=== PATIENT | male | born 1970 | race Caucasian/White ===

== ENCOUNTER 2018-07-13 08:54 | Inpatient (IN) | payer OTHER ==
[2018-07-13 10:12] VITALS: BMI 21.1
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
[2018-07-13] MEDS ORDERED: MAGNESIUM CITRATE 300 ML BOTTLE PO PRN (11:54)
[2018-07-13] MEDS ORDERED: MELATONIN 5 MG TABLETS PO PRN (11:54)
[2018-07-13] MEDS ORDERED: hydrOXYzine PAMOATE 25 MG CAPSULE (FP) PO PRN (11:54)
[2018-07-13] MEDS ORDERED: MENTHOL/PHENOL 1 EACH UD MM PRN (11:54)
[2018-07-13] MEDS ORDERED: ACETAMINOPHEN 325 MG TABLET (FP) PO PRN ×2 (11:54)
[2018-07-13] MEDS ORDERED: NICOTINE POLACRILEX 2 MG GUM BUC PRN (11:54)
[2018-07-13] MEDS ORDERED: chlordiazePOXIDE HCL 25 MG CAPSULE PO PRN (11:54)
[2018-07-13] MEDS ORDERED: MAG HYDROX/AL HYDROX/SIMETH 30 ML UNIT-DOSE CUP PO PRN (11:54)
[2018-07-13] MEDS ORDERED: METHOCARBAMOL 500 MG TABLET PO PRN (11:54)
[2018-07-13] MEDS ORDERED: IBUPROFEN 400 MG TABLET (FP) PO PRN (11:54)
[2018-07-13] MEDS ORDERED: BISMUTH SUBSALICYLATE 262 MG/15 ML BTL PO PRN (11:54)
[2018-07-13] MEDS ORDERED: MAGNESIUM HYDROX 2400MG/30ML ORAL SUSPENSION 30 ML CUP PO PRN (11:54)
[2018-07-13] MEDS ORDERED: ALBUTEROL SO4 8 GM HFA INHALER IH PRN (11:59)
[2018-07-13] MEDS: NICOTINE 21 MG/24 HOURS TOPICAL PATCH TD SCH (13:28)
[2018-07-13] MEDS: chlordiazePOXIDE HCL 25 MG CAPSULE PO SCH ×3 (13:34→22:56)
[2018-07-13 15:14] LABS: HEMATOCRIT 44.6 % (35.4-49); HEMOGLOBIN 14.7 GM/dL (11.7-16.9); MCH 31.6 pg (25.7-33.7); MEAN CELL VOLUME 95.6 fl (80-96); MEAN PLT VOLUME 8.4 fl (7.5-11.1); PLATELET COUNT 266 K/MM3 (134-434); RBC 4.67 M/mm3 (4.00-5.60)
[2018-07-13 15:53] LABS: ALBUMIN 4.3 g/dl (3.4-5.0); BILIRUBIN,TOTAL 0.4 mg/dL (0.2-1); CALCIUM 9.5 mg/dL (8.5-10.1); CREATININE 0.8 mg/dL (0.55-1.3); POTASSIUM 4.6 mmol/L (3.5-5.1); TOT PROT 7.6 g/dl (6.4-8.2)
--- NOTE | 2018-07-13 17:16 | EKG ---
Test Reason : Blood Pressure : / mmHG Vent. Rate : 073 BPM Atrial Rate : 073 BPM P-R Int : 134 ms QRS Dur : 076 ms QT Int : 406 ms P-R-T Axes : 061 042 071 degrees QTc Int : 447 ms POOR DATA QUALITY, INTERPRETATION MAY BE ADVERSELY AFFECTED NORMAL SINUS RHYTHM NORMAL ECG NO PREVIOUS ECGS AVAILABLE Confirmed by ARTURO ALMARAZ MD ([id number]) on 07/13/2018 5:15:29 PM Referred By: Confirmed By:ARTURO ALMARAZ MD
[2018-07-13 18:07] LABS: URINE APPEARANCE CLEAR; URINE BILIRUBIN NEGATIVE (NEGATIVE); URINE COLOR YELLOW; URINE GLUCOSE (UA) NEGATIVE (NEGATIVE); URINE KETONE NEGATIVE (NEGATIVE); URINE LEUK ESTERASE NEGATIVE (NEGATIVE); URINE NITRITE NEGATIVE (NEGATIVE); URINE PROTEIN NEGATIVE (NEGATIVE); URINE UROBILINOGEN 0.2 mg/dL (0.2-1.0)
[2018-07-13] MEDS: THIAMINE HCL 100 MG TABLET (FP) PO SCH (23:00)
[2018-07-14] MEDS: chlordiazePOXIDE HCL 25 MG CAPSULE PO SCH ×5 (06:25→22:38)
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
[2018-07-14] MEDS ORDERED: NICOTINE POLACRILEX 4 MG GUM BUC PRN (09:37)
[2018-07-14] MEDS ORDERED: chlordiazePOXIDE HCL 25 MG CAPSULE PO PRN (11:17)
[2018-07-14] MEDS ORDERED: chlordiazePOXIDE HCL 25 MG CAPSULE PO ONE (11:35)
[2018-07-14] MEDS: NICOTINE 21 MG/24 HOURS TOPICAL PATCH TD SCH (11:46)
[2018-07-14] MEDS: hydrOXYzine PAMOATE 50 MG CAPSULE (FP) PO PRN (13:47)
[2018-07-14] MEDS: PRENATAL VITAMINS W/ FOLIC ACID TABLET (FP) PO SCH (13:47)
[2018-07-14] MEDS: NICOTINE POLACRILEX 4 MG GUM BUC PRN ×2 (13:48→22:42)
[2018-07-14] MEDS: SUVOREXANT 10 MG TABLET PO PRN (22:38)
[2018-07-14] MEDS: THIAMINE HCL 100 MG TABLET (FP) PO SCH (22:38)
[2018-07-15] MEDS: chlordiazePOXIDE HCL 25 MG CAPSULE PO SCH ×4 (02:08→22:17)
[2018-07-15] MEDS ORDERED: chlordiazePOXIDE HCL 10 MG CAPSULE PO PRN (05:00)
[2018-07-15] MEDS ORDERED: chlordiazePOXIDE HCL 10 MG CAPSULE PO SCH (05:00)
[2018-07-15] MEDS: hydrOXYzine PAMOATE 50 MG CAPSULE (FP) PO PRN ×2 (07:57→17:07)
--- NOTE | 2018-07-15 09:23 | PN ---
S CIWA - CIWA Score Nausea/Vomitin Muscle Tremors: 2 Anxiety: 3 Agitation: 3 Paroxysmal Sweats: 1-Minimal Palms Moist Orientation: 0-Oriented Tacttile Disturbances: 1-Very Mild Itch/Numbness Auditory Disturbances: 1-Very Mild Visual Disturbances: 0-None Headache: 1-Very Mild CIWA-Ar Total Score: 14 S Progress Note (SOAP) Subjective: alert,irritable,anxious,interrupted sleep,tremor Objective: 07/15/18 09:22 Vital Signs Temperature 97.5 F L 07/15/18 06:14 Pulse Rate 70 07/15/18 06:14 Respiratory Rate 18 07/15/18 06:14 Blood Pressure 109/74 07/15/18 06:14 O2 Sat by Pulse Oximetry (%) Laboratory Last Values WBC 8.0 K/mm3 (4.0-10.0) 07/13/18 11:50 RBC 4.67 M/mm3 (4.00-5.60) 07/13/18 11:50 Hgb 14.7 GM/dL (11.7-16.9) 07/13/18 11:50 Hct 44.6 % (35.4-49) 07/13/18 11:50 MCV 95.6 fl (80-96) 07/13/18 11:50 MCH 31.6 pg (25.7-33.7) 07/13/18 11:50 MCHC 33.0 g/dl (32.0-35.9) 07/13/18 11:50 RDW 13.0 % (11.9-15.9) 07/13/18 11:50 Plt Count 266 K/MM3 (134-434) 07/13/18 11:50 MPV 8.4 fl (7.5-11.1) 07/13/18 11:50 Sodium 140 mmol/L (136-145) 07/13/18 11:50 Potassium 4.6 mmol/L (3.5-5.1) 07/13/18 11:50 Chloride 105 mmol/L (98-107) 07/13/18 11:50 Carbon Dioxide 28 mmol/L (21-32) 07/13/18 11:50 Anion Gap 7 MMOL/L (8-16) L 07/13/18 11:50 BUN 7 mg/dL (7-18) 07/13/18 11:50 Creatinine 0.8 mg/dL (0.55-1.3) 07/13/18 11:50 Est GFR (CKD-EPI)AfAm 122.43 07/13/18 11:50 Est GFR (CKD-EPI)NonAf 105.63 07/13/18 11:50 Random Glucose 98 mg/dL (74-106) 07/13/18 11:50 Calcium 9.5 mg/dL (8.5-10.1) 07/13/18 11:50 Total Bilirubin 0.4 mg/dL (0.2-1) 07/13/18 11:50 AST 18 U/L (15-37) 07/13/18 11:50 ALT 18 U/L (13-61) 07/13/18 11:50 Alkaline Phosphatase 74 U/L (45-117) 07/13/18 11:50 Total Protein 7.6 g/dl (6.4-8.2) 07/13/18 11:50 Albumin 4.3 g/dl (3.4-5.0) 07/13/18 11:50 Urine Color Yellow 07/13/18 15:30 Urine Appearance Clear 07/13/18 15:30 Urine pH 6.0 (5.0-8.0) 07/13/18 15:30 Ur Specific [place] 1.017 (1.010-1.035) 07/13/18 15:30 Urine Protein Negative (NEGATIVE) 07/13/18 15:30 Urine Glucose (UA) Negative (NEGATIVE) 07/13/18 15:30 Urine Ketones Negative (NEGATIVE) 07/13/18 15:30 Urine Blood Negative (NEGATIVE) 07/13/18 15:30 Urine Nitrite Negative (NEGATIVE) 07/13/18 15:30 Urine Bilirubin Negative (NEGATIVE) 07/13/18 15:30 Urine Urobilinogen 0.2 mg/dL (0.2-1.0) 07/13/18 15:30 Ur Leukocyte Esterase Negative (NEGATIVE) 07/13/18 15:30 RPR Titer Nonreactive (NONREACTIVE) 07/13/18 11:50 HIV 1&2 Antibody Screen Negative 07/14/18 06:00 HIV P24 Antigen Negative 07/14/18 06:00 Assessment: 07/15/18 09:23 withdrawal symptom Plan: continue detox
[2018-07-15] MEDS: NICOTINE 21 MG/24 HOURS TOPICAL PATCH TD SCH (10:16)
[2018-07-15] MEDS: PRENATAL VITAMINS W/ FOLIC ACID TABLET (FP) PO SCH (10:17)
[2018-07-15] MEDS: NICOTINE POLACRILEX 4 MG GUM BUC PRN ×3 (10:18→22:18)
[2018-07-15] MEDS: THIAMINE HCL 100 MG TABLET (FP) PO SCH (22:35)
[2018-07-16] MEDS ORDERED: chlordiazePOXIDE HCL 10 MG CAPSULE PO SCH (05:00)
[2018-07-16] MEDS: chlordiazePOXIDE HCL 25 MG CAPSULE PO SCH (05:47)
[2018-07-16] MEDS: NICOTINE POLACRILEX 4 MG GUM BUC PRN ×3 (05:50→22:30)
[2018-07-16] MEDS: chlordiazePOXIDE HCL 10 MG CAPSULE PO SCH ×3 (10:44→22:28)
[2018-07-16] MEDS: PRENATAL VITAMINS W/ FOLIC ACID TABLET (FP) PO SCH (10:44)
[2018-07-16] MEDS: NICOTINE 21 MG/24 HOURS TOPICAL PATCH TD SCH (10:46)
[2018-07-16] MEDS ORDERED: chlordiazePOXIDE HCL 10 MG CAPSULE PO PRN (11:00)
--- NOTE | 2018-07-16 11:18 | PN ---
[facility] CIWA - CIWA Score Nausea/Vomitin-No Nausea/No Vomiting Muscle Tremors: 2 Anxiety: 2 Agitation: 2 Paroxysmal Sweats: 3 Orientation: 0-Oriented Tacttile Disturbances: 0-None Auditory Disturbances: 0-None Visual Disturbances: 0-None Headache: 2-Mild CIWA-Ar Total Score: 11 S Progress Note (SOAP) Subjective: c/o sweats, anxiety, headache, and tremors. Objective: 07/16/18 11:17 Vital Signs 07/16/18 07/16/18 03:30 06:00 Temperature 97.7 F Pulse Rate 117 H Respiratory 18 16 Rate Blood Pressure 99/57 L Lab Results WBC 8.0 K/mm3 (4.0-10.0) 07/13/18 11:50 RBC 4.67 M/mm3 (4.00-5.60) 07/13/18 11:50 Hgb 14.7 GM/dL (11.7-16.9) 07/13/18 11:50 Hct 44.6 % (35.4-49) 07/13/18 11:50 MCV 95.6 fl (80-96) 07/13/18 11:50 MCHC 33.0 g/dl (32.0-35.9) 07/13/18 11:50 RDW 13.0 % (11.9-15.9) 07/13/18 11:50 Plt Count 266 K/MM3 (134-434) 07/13/18 11:50 Sodium 140 mmol/L (136-145) 07/13/18 11:50 Potassium 4.6 mmol/L (3.5-5.1) 07/13/18 11:50 Chloride 105 mmol/L (98-107) 07/13/18 11:50 Carbon Dioxide 28 mmol/L (21-32) 07/13/18 11:50 Anion Gap 7 MMOL/L (8-16) L 07/13/18 11:50 BUN 7 mg/dL (7-18) 07/13/18 11:50 Creatinine 0.8 mg/dL (0.55-1.3) 07/13/18 11:50 Random Glucose 98 mg/dL (74-106) 07/13/18 11:50 Calcium 9.5 mg/dL (8.5-10.1) 07/13/18 11:50 Labs noted. Assessment: 07/16/18 11:19 AOX3, in no acute distress. full rom, ambulating in the unit withdrawal symptoms. Plan: continue detox increase fluids
[2018-07-16] MEDS: hydrOXYzine PAMOATE 50 MG CAPSULE (FP) PO PRN (16:04)
[2018-07-16] MEDS: THIAMINE HCL 100 MG TABLET (FP) PO SCH (22:28)
[2018-07-16] MEDS: SUVOREXANT 10 MG TABLET PO PRN (22:30)
[2018-07-17 06:17] VITALS: TEMP 97.5
[2018-07-17 06:58] VITALS: BP 99/68; PULSE 86
[2018-07-17] MEDS: chlordiazePOXIDE HCL 10 MG CAPSULE PO SCH (06:59)
[2018-07-17] MEDS: NICOTINE POLACRILEX 4 MG GUM BUC PRN (07:00)
[2018-07-17] MEDS ORDERED: chlordiazePOXIDE HCL 10 MG CAPSULE PO SCH (11:00)
--- NOTE | 2018-07-17 14:51 | DS ---
[facility] Detox Discharge Summary Admission Date: 07/13/18 Discharge Date: 07/17/18 - History Present History: Alcohol Dependence, Cannabis Dependence Additional Comments: Patient completed detox successfully. Patient is stable; discharged safely. Patient instructed to follow up with PCP within 1-2 weeks. Pertinent Past History: Alcohol dependence Cannabis dependence Nicotine dependence PTSD COPD Anemia - Physical Exam Results Vital Signs: Vital Signs Temperature 97.5 F L 07/17/18 06:00 Pulse Rate 86 07/17/18 06:00 Respiratory Rate 16 07/17/18 06:00 Blood Pressure 99/68 07/17/18 06:00 O2 Sat by Pulse Oximetry (%) Pertinent Admission Physical Exam Findings: Withdrawal symptoms Laboratory Tests 07/13/18 07/13/18 07/13/18 11:50 11:50 11:50 WBC 8.0 RBC 4.67 Hgb 14.7 Hct 44.6 MCV 95.6 MCH 31.6 MCHC 33.0 RDW 13.0 Plt Count 266 MPV 8.4 Sodium Cancelled Potassium Cancelled Chloride Cancelled Carbon Dioxide Cancelled Anion Gap Cancelled BUN Cancelled Creatinine Cancelled Est GFR (CKD-EPI)AfAm Cancelled Est GFR (CKD-EPI)NonAf Cancelled Random Glucose Cancelled Calcium Cancelled Total Bilirubin Cancelled AST Cancelled ALT Cancelled Alkaline Phosphatase Cancelled Total Protein Cancelled Albumin Cancelled Urine Color Urine Appearance Urine pH Ur Specific [place] Urine Protein Urine Glucose (UA) Urine Ketones Urine Blood Urine Nitrite Urine Bilirubin Urine Urobilinogen Ur Leukocyte Esterase RPR Titer Nonreactive HIV 1&2 Antibody Screen HIV P24 Antigen 07/13/18 07/13/18 07/14/18 11:50 15:30 06:00 WBC RBC Hgb Hct MCV MCH MCHC RDW Plt Count MPV Sodium 140 Potassium 4.6 Chloride 105 Carbon Dioxide 28 Anion Gap 7 L BUN 7 Creatinine 0.8 Est GFR (CKD-EPI)AfAm 122.43 Est GFR (CKD-EPI)NonAf 105.63 Random Glucose 98 Calcium 9.5 Total Bilirubin 0.4 AST 18 ALT 18 Alkaline Phosphatase 74 Total Protein 7.6 Albumin 4.3 Urine Color Yellow Urine Appearance Clear Urine pH 6.0 Ur Specific [place] 1.017 Urine Protein Negative Urine Glucose (UA) Negative Urine Ketones Negative Urine Blood Negative Urine Nitrite Negative Urine Bilirubin Negative Urine Urobilinogen 0.2 Ur Leukocyte Esterase Negative RPR Titer HIV 1&2 Antibody Screen Negative HIV P24 Antigen Negative Labs reviewed - Treatment Hospital Course: Detox Protocol Followed, Detoxed Safely, Responded well, Discharged Condition Good - Medication Discharge Medications: Ambulatory Orders Albuterol Sulfate Inhaler - [Ventolin Hfa Inhaler -] 2 inh PO Q4H PRN 07/13/18 - Diagnosis (1) Nicotine dependence Status: Chronic (2) Anemia Status: Chronic (3) Alcohol dependence with uncomplicated withdrawal Status: Acute (4) Cannabis abuse Status: Chronic (5) COPD (chronic obstructive pulmonary disease) Status: Chronic (6) PTSD (post-traumatic stress disorder) Status: Chronic - AMA Did Patient Leave Against Medical Advice: No (Follow up with PCP within 1-2 weeks)
== END 2018-07-17 08:55 | disposition home or self-care (01) | DRG 775 ==
LOC: YASAS 08:54 → Y6N 12:34
PROVIDERS: ADMIT Surgery; ATTEND Surgery
PROC: HZ2ZZZZ Detoxification Services for Substance Abuse Treatment (ICD-10-PCS; principal; 2018-07-13)
DX: F10.230 Alcohol dependence with withdrawal, uncomplicated (principal); F13.20 Sedative, hypnotic or anxiolytic dependence, uncomplicated; F12.20 Cannabis dependence, uncomplicated; F17.210 Nicotine dependence, cigarettes, uncomplicated; F19.280 Other psychoactive substance dependence with psychoactive substance-induced anxiety disorder; F19.282 Other psychoactive substance dependence with psychoactive substance-induced sleep disorder; F43.10 Post-traumatic stress disorder, unspecified; J44.9 Chronic obstructive pulmonary disease, unspecified; D64.9 Anemia, unspecified; E86.0 Dehydration; R55 Syncope and collapse
CPT/HCPCS: 36415; 80053; 81003; 85027; 86593; 87389; 93005; 93010

== ENCOUNTER 2019-11-03 21:49 | Inpatient (IN) | payer OTHER ==
[2019-11-03 22:26] VITALS: BMI 21.7
--- NOTE | 2019-11-03 23:10 | HP ---
CIWA Score Nausea/Vomitin Muscle Tremors: 4-Moderate,w/Arms Extend Anxiety: 2 Agitation: 2 Paroxysmal Sweats: 2 Orientation: 2-Disoriented Date<2 days Tacttile Disturbances: 0-None Auditory Disturbances: 0-None Visual Disturbances: 0-None Headache: 3-Moderate CIWA-Ar Total Score: 17 - Admission Criteria OASAS Guidelines: Admission for Medically Managed Detox: Requires at least one of the followin. CIWA greater than 12 2. Seizures within the past 24 hours 3. Delirium tremens within the past 24 hours 4. Hallucinations within the past 24 hours 5. Acute intervention needed for co occurring medical disorder 6. Acute intervention needed for co occurring psychiatric disorder 7. Severe withdrawal that cannot be handled at a lower level of care (continued vomiting, continued diarrhea, abnormal vital signs) requiring intravenous medication and/or fluids 8. Admitting History and Physical - Smoking History Smoking history: Current every day smoker Have you smoked in the past 12 months: Yes Aproximately how many cigarettes per day: 50 - Alcohol/Substance Use Hx Alcohol Use: Yes Admission ROS [facility] Chief Complaint: Alcohol withdrawal symptoms Allergies/Adverse Reactions: Allergies Allergy/AdvReac Type Severity Reaction Status Date / Time talbot Allergy Severe Swelling Verified 11/03/19 23:18 Fish Containing Products Allergy Intermediate Swelling Verified 11/03/19 23:18 History of Present Illness: 49 years old male with a long history of alcohol dependence is seeking admission to detox. His last admission was for the period 07/13/2018 - 07/17/2018 and he reports that he relapsed as soon as he got home. He reports that he drinks 10 x 24oz. beer daily. His last admission was at [facility]. He has medical history of COPD, asthma, anemia, psych. history of depression, PTSD and he denies suicidal ideation at this time. He is unemployed, homeless and denies any legal issues. He reports + eye de alcholizer, blackouts and alcohol related seizures. Exam Limitations: No Limitations - Ebola screening Have you traveled outside of the country in the last 21 days: No Have you had contact with anyone from an Ebola affected area: No Do you have a fever: No - Review of Systems Constitutional: Chills, Malaise, Changes in sleep EENT: reports: No Symptoms Reported Respiratory: reports: No Symptoms reported Cardiac: reports: No Symptoms Reported GI: reports: Nausea, Poor Appetite, Poor Fluid Intake, Abdominal cramping : reports: No Symptoms Reported Musculoskeletal: reports: Back Pain, Joint Pain, Muscle Pain Integumentary: reports: Dryness, Flushing Neuro: reports: Tremors Endocrine: reports: No Symptoms Reported Hematology: reports: No Symptoms Reported Psychiatric: reports: Mood/Affect Appropiate, Anxious, Depressed Other Systems: Reviewed and Negative Patient History - Patient Medical History Hx Anemia: Yes (Not on medication) Hx Asthma: No Hx Chronic Obstructive Pulmonary Disease (COPD): Yes (on albuterol inhaler) Hx Cancer: No Hx Cardiac Disorders: No Hx Congestive Heart Failure: No Hx Hypertension: No Hx Hypercholesterolemia: No Hx Pacemaker: No HX Cerebrovascular Accident: No Hx Seizures: Yes (Alcohol related - Not on medication) Hx Dementia: No Hx Diabetes: No Hx Gastrointestinal Disorders: No Hx Liver Disease: No Hx Genitourinary Disorders: No Hx Sexually Transmitted Disorders: No Hx Renal Disease (ESRD): No Hx Thyroid Disease: No Hx Human Immunodeficiency Virus (HIV): No (last 2017 negative) Hx Hepatitis C: No Hx Depression: Yes (+ anxiety) Hx Suicide Attempt: No (Denies suicidal ideation at this time) Hx Bipolar Disorder: No Hx Schizophrenia: No - Patient Surgical History Past Surgical History: Yes Hx Orthopedic Surgery: Yes (right knee surgery in 12/02) Anesthesia Reaction: No - PPD History Previous Implant?: Yes Documented Results: Positive w/proof [facility]plant[facility] Admission?: Yes Date: 07/15/18 PPD to be Administered?: Yes - Reproductive History Patient is a Female of Child Bearing Age (11 -55 yrs old): No (Male) - Smoking Cessation Smoking history: Current every day smoker Have you smoked in the past 12 months: Yes Aproximately how many cigarettes per day: 50 Hx Chewing Tobacco Use: No Initiated information on smoking cessation: Yes 'Breaking Loose' booklet given: 11/03/19 - Substance & Tx. History Hx Alcohol Use: Yes Hx Substance Use: Yes Substance Use Type: Alcohol, Marijuana Hx Substance Use Treatment: Yes ([facility]) - Substances abused Alcohol Substance route: Oral Frequency: Daily Amount used: 10 x 24oz. beer Age of first use: 11 Date of last use: 11/02/19 Admission Physical Exam BHS - Vital Signs Vital Signs: Vital Signs - 24 hr 11/03/19 22:24 Temperature 97.7 F Pulse Rate 92 H Respiratory 18 Rate Blood Pressure 123/90 - Physical General Appearance: Yes: Moderate Distress, Tremorous, Anxious HEENTM: Yes: Within Normal Limits Respiratory: Yes: Lungs Clear, Normal Breath Sounds, No Respiratory Distress Neck: Yes: Within Normal Limits Breast: Yes: Breast Exam Deferred Cardiology: Yes: Tachycardia Abdominal: Yes: Normal Bowel Sounds Genitourinary: Yes: Within Normal Limits Back: Yes: Normal Inspection Musculoskeletal: Yes: Back pain, Muscle Pain Extremities: Yes: Tremors Neurological: Yes: Within Normal Limits Integumentary: Yes: Warm Lymphatic: Yes: Within Normal Limits - Diagnostic (1) Marijuana dependence Current Visit: Yes Status: Chronic (2) Alcohol dependence with uncomplicated withdrawal Current Visit: Yes Status: Acute (3) Anemia Current Visit: Yes Status: Chronic Qualifiers: Anemia type: iron deficiency (4) COPD (chronic obstructive pulmonary disease) Current Visit: Yes Status: Chronic (5) Nicotine dependence Current Visit: Yes Status: Chronic (6) PTSD (post-traumatic stress disorder) Current Visit: Yes Status: Chronic (7) Asthma Current Visit: Yes Status: Chronic Qualifiers: Asthma severity: mild Asthma persistence: intermittent (8) Alcohol related seizure Current Visit: Yes Status: Chronic Cleared for Admission [facility] - Detox or Rehab [facility] Level of Care: Medically Managed Detox Regimen/Protocol: Librium Claeared for Rehab Admission: No Breathalyzer - Breathalyzer Breathalyzer: 0 Urine Drug Screen - Test Device Lot number: [id number] Expiration date: 09/18/21 - Control Is test valid?: Yes - Results Drug screen NEGATIVE: No Urine drug screen results: THC-Marijuana, BZO-Benzodiazepines Inpatient Rehab Admission - Rehab Decision to Admit Inpatient rehab admission?: No
[2019-11-03] MEDS ORDERED: METHOCARBAMOL 500 MG TABLET PO PRN (23:23)
[2019-11-03] MEDS ORDERED: BISMUTH SUBSALICYLATE 524 MG/30 ML UD PO PRN (23:23)
[2019-11-03] MEDS ORDERED: MENTHOL/PHENOL 1 EACH UD MM PRN (23:23)
[2019-11-03] MEDS ORDERED: IBUPROFEN 400 MG TABLET (FP) PO PRN (23:23)
[2019-11-03] MEDS ORDERED: chlordiazePOXIDE HCL 25 MG CAPSULE PO PRN ×2 (23:23→23:41)
[2019-11-03] MEDS ORDERED: ACETAMINOPHEN 325 MG TABLET (FP) PO PRN ×2 (23:23)
[2019-11-03] MEDS ORDERED: NICOTINE POLACRILEX 2 MG GUM BUC PRN (23:23)
[2019-11-03] MEDS ORDERED: ONDANSETRON *ODT* 4 MG TABLET SL PRN (23:23)
[2019-11-03] MEDS ORDERED: MAG HYDROX/AL HYDROX/SIMETH 30 ML UNIT-DOSE CUP PO PRN (23:23)
[2019-11-03] MEDS ORDERED: MAGNESIUM HYDROX 2400MG/30ML ORAL SUSPENSION 30 ML CUP PO PRN (23:23)
[2019-11-03] MEDS ORDERED: MAGNESIUM CITRATE 300 ML BOTTLE PO PRN (23:23)
[2019-11-03] MEDS ORDERED: ALBUTEROL SO4 HFA INHALER IH PRN (23:27)
[2019-11-04] MEDS: chlordiazePOXIDE HCL 25 MG CAPSULE PO SCH ×7 (00:58→22:35)
[2019-11-04] MEDS ORDERED: chlordiazePOXIDE HCL 25 MG CAPSULE PO SCH (05:00)
--- NOTE | 2019-11-04 09:03 | EKG ---
Test Reason : Blood Pressure : / mmHG Vent. Rate : 080 BPM Atrial Rate : 080 BPM P-R Int : 126 ms QRS Dur : 086 ms QT Int : 390 ms P-R-T Axes : 063 055 067 degrees QTc Int : 449 ms POOR DATA QUALITY, INTERPRETATION MAY BE ADVERSELY AFFECTED NORMAL SINUS RHYTHM NORMAL ECG WHEN COMPARED WITH ECG OF 13-JUL-2018 12:13, NO SIGNIFICANT CHANGE WAS FOUND Confirmed by Sarah De La Vega ([id number]) on 11/04/2019 9:03:29 AM Referred By: Sushant Byrd Confirmed By:Sarah De La Vega
[2019-11-04 09:18] LABS: HEMOGLOBIN 15.3 GM/dL (11.7-16.9); MCH 33.2 pg (25.7-33.7); MCHC 33.9 g/dl (32.0-35.9); MEAN CELL VOLUME 98.1 fl (80-96); MEAN PLT VOLUME 8.3 fl (7.5-11.1); PLATELET COUNT 271 K/MM3 (134-434); RBC 4.59 M/mm3 (4.00-5.60); RDW 12.9 % (11.9-15.9); WHITE BLOOD COUNT 6.8 K/mm3 (4.0-10.0)
[2019-11-04 09:30] LABS: ALBUMIN 3.7 g/dl (3.4-5.0); BILIRUBIN,TOTAL 0.9 mg/dL (0.2-1); BLOOD UREA NITROGEN 7.4 mg/dL (7-18); CALCIUM 9.1 mg/dL (8.5-10.1); CREATININE 0.8 mg/dL (0.55-1.3); POTASSIUM 3.8 mmol/L (3.5-5.1); TOT PROT 6.9 g/dl (6.4-8.2)
--- NOTE | 2019-11-04 10:20 | PN ---
S CIWA - CIWA Score Nausea/Vomitin-No Nausea/No Vomiting Muscle Tremors: 2 Anxiety: 3 Agitation: 0-Normal Activity Paroxysmal Sweats: 3 Orientation: 0-Oriented Tacttile Disturbances: 0-None Auditory Disturbances: 0-None Visual Disturbances: 0-None Headache: 2-Mild CIWA-Ar Total Score: 10 S Progress Note (SOAP) Subjective: c/o anxiety, sweats, and headache. Objective: 11/04/19 10:19 Vital Signs 11/04/19 11/04/19 06:27 08:45 Temperature 96.9 F L 98.2 F Pulse Rate 80 84 Respiratory 18 18 Rate Blood Pressure 102/73 109/75 O2 Sat by Pulse 97 Oximetry (%) Laboratory Last Values WBC 6.8 K/mm3 (4.0-10.0) 11/04/19 07:45 RBC 4.59 M/mm3 (4.00-5.60) 11/04/19 07:45 Hgb 15.3 GM/dL (11.7-16.9) 11/04/19 07:45 Hct 45.0 % (35.4-49) 11/04/19 07:45 MCV 98.1 fl (80-96) H 11/04/19 07:45 MCH 33.2 pg (25.7-33.7) 11/04/19 07:45 MCHC 33.9 g/dl (32.0-35.9) 11/04/19 07:45 RDW 12.9 % (11.9-15.9) 11/04/19 07:45 Plt Count 271 K/MM3 (134-434) 11/04/19 07:45 MPV 8.3 fl (7.5-11.1) 11/04/19 07:45 Sodium 137 mmol/L (136-145) 11/04/19 07:45 Potassium 3.8 mmol/L (3.5-5.1) 11/04/19 07:45 Chloride 104 mmol/L (98-107) 11/04/19 07:45 Carbon Dioxide 27 mmol/L (21-32) 11/04/19 07:45 Anion Gap 6 MMOL/L (8-16) L 11/04/19 07:45 BUN 7.4 mg/dL (7-18) 11/04/19 07:45 Creatinine 0.8 mg/dL (0.55-1.3) 11/04/19 07:45 Est GFR (CKD-EPI)AfAm 120.72 11/04/19 07:45 Est GFR (CKD-EPI)NonAf 104.16 11/04/19 07:45 Random Glucose 99 mg/dL (74-106) 11/04/19 07:45 Calcium 9.1 mg/dL (8.5-10.1) 11/04/19 07:45 Total Bilirubin 0.9 mg/dL (0.2-1) 11/04/19 07:45 AST 24 U/L (15-37) 11/04/19 07:45 ALT 22 U/L (13-61) 11/04/19 07:45 Alkaline Phosphatase 61 U/L (45-117) 11/04/19 07:45 Total Protein 6.9 g/dl (6.4-8.2) 11/04/19 07:45 Albumin 3.7 g/dl (3.4-5.0) 11/04/19 07:45 Labs noted. Assessment: 11/04/19 10:19 AOX3, in no acute respiratory distress. Full ROM, ambulating in the unit. Withdrawal symptoms. Plan: continue detox.
[2019-11-04] MEDS: PRENATAL VITAMINS W/ FOLIC ACID TABLET (FP) PO SCH (10:44)
[2019-11-04] MEDS: NICOTINE 21 MG/24 HOURS TOPICAL PATCH TD SCH (10:45)
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
[2019-11-04] MEDS: QUEtiapine FUMARATE 50 MG TABLET PO SCH (22:35)
[2019-11-04] MEDS: MELATONIN 5 MG TABLETS PO SCH (22:35)
[2019-11-04] MEDS: THIAMINE HCL 100 MG TABLET (FP) PO SCH (22:35)
[2019-11-05] MEDS ORDERED: chlordiazePOXIDE HCL 10 MG CAPSULE PO PRN
[2019-11-05] MEDS ORDERED: chlordiazePOXIDE HCL 10 MG CAPSULE PO SCH (05:00)
[2019-11-05] MEDS: chlordiazePOXIDE HCL 25 MG CAPSULE PO SCH ×4 (05:49→22:37)
[2019-11-05] MEDS: NICOTINE 21 MG/24 HOURS TOPICAL PATCH TD SCH (10:38)
[2019-11-05] MEDS: PRENATAL VITAMINS W/ FOLIC ACID TABLET (FP) PO SCH (10:38)
--- NOTE | 2019-11-05 10:51 | PN ---
[facility] CIWA - CIWA Score Nausea/Vomitin-No Nausea/No Vomiting Muscle Tremors: 2 Anxiety: 3 Agitation: 4-Moderately Restless Paroxysmal Sweats: No Perspiration Orientation: 0-Oriented Tacttile Disturbances: 0-None Auditory Disturbances: 0-None Visual Disturbances: 0-None Headache: 0-None Present CIWA-Ar Total Score: 9 BHS Progress Note (SOAP) Subjective: 49 years old male was admitted on 11/03/19 for alcohol withdrawal sx management treating with librium detox regiment anxious and agitated about seroquel 50 once a day "I am taking twice a day" "I can not calm down taking seroquel once a day" 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 specialist will see mr mayer if possible psychiatrist referral vistaril 50mg po initiated first dose 11 am Objective: 11/05/19 10:56 Vital Signs - 24 hr 11/04/19 11/04/19 11/04/19 12:36 16:46 21:00 Temperature 97.2 F L 98.2 F 97.1 F L Pulse Rate 112 H 81 87 Respiratory 20 16 16 Rate Blood Pressure 119/81 116/85 111/85 O2 Sat by Pulse 98 99 Oximetry (%) 11/05/19 11/05/19 06:15 08:57 Temperature 97.3 F L 96.9 F L Pulse Rate 74 101 H Respiratory 18 20 Rate Blood Pressure 110/80 105/69 O2 Sat by Pulse 98 Oximetry (%) Laboratory Tests 11/04/19 11/04/19 11/04/19 07:45 07:45 07:45 WBC 6.8 RBC 4.59 Hgb 15.3 Hct 45.0 MCV 98.1 H MCH 33.2 MCHC 33.9 RDW 12.9 Plt Count 271 MPV 8.3 Sodium 137 Potassium 3.8 Chloride 104 Carbon Dioxide 27 Anion Gap 6 L BUN 7.4 Creatinine 0.8 Est GFR (CKD-EPI)AfAm 120.72 Est GFR (CKD-EPI)NonAf 104.16 Random Glucose 99 Calcium 9.1 Total Bilirubin 0.9 AST 24 ALT 22 Alkaline Phosphatase 61 Total Protein 6.9 Albumin 3.7 Syphilis Serology Non-reactive 11/05/19 10:56 covid pending 11/05/19 10:56 qtc 449 Assessment: 11/05/19 10:56 alcohol withdrawal Plan: librium regiment
[2019-11-05] MEDS: hydrOXYzine PAMOATE 50 MG CAPSULE (FP) PO SCH ×4 (12:00→22:37)
[2019-11-05] MEDS: QUEtiapine FUMARATE 50 MG TABLET PO SCH (22:37)
[2019-11-05] MEDS: THIAMINE HCL 100 MG TABLET (FP) PO SCH (22:37)
[2019-11-05] MEDS: MELATONIN 5 MG TABLETS PO SCH (22:37)
[2019-11-06] MEDS ORDERED: chlordiazePOXIDE HCL 10 MG CAPSULE PO PRN
[2019-11-06] MEDS ORDERED: chlordiazePOXIDE HCL 10 MG CAPSULE PO SCH (05:00)
[2019-11-06] MEDS: chlordiazePOXIDE HCL 10 MG CAPSULE PO SCH ×2 (05:32→10:29)
[2019-11-06 09:34] VITALS: BP 94/64; PULSE 98; TEMP 97.3
--- NOTE | 2019-11-06 10:04 | PN ---
S CIWA - CIWA Score Nausea/Vomitin-No Nausea/No Vomiting Muscle Tremors: 2 Anxiety: 2 Agitation: 1-Slight > Activity Paroxysmal Sweats: No Perspiration Orientation: 0-Oriented Tacttile Disturbances: 0-None Auditory Disturbances: 0-None Visual Disturbances: 1-Very Mild Sensitivity Headache: 1-Very Mild CIWA-Ar Total Score: 7 S Progress Note (SOAP) Subjective: 49 yearsj old male was admitted on 11/03/19 for alcohol withdrawal sx management treating with librium detox regiment seen by psychiatrist resume seroquel 50mg po hs mr mayer states that he take seroquel 50mg po bid keeps him calm and managing controlled behavior at the detox unit psychiatrist referral order in place bmi 21.7 ensure 120 ml po tid with meals Objective: 11/06/19 10:06 Vital Signs - 24 hr 11/05/19 11/05/19 11/05/19 12:30 16:56 20:53 Temperature 96.9 F L 97.5 F L 96.9 F L Pulse Rate 100 H 90 90 Respiratory 20 18 16 Rate Blood Pressure 113/81 107/75 101/71 O2 Sat by Pulse 98 99 Oximetry (%) 11/06/19 11/06/19 05:28 08:31 Temperature 97.8 F 97.3 F L Pulse Rate 73 98 H Respiratory 16 20 Rate Blood Pressure 100/61 94/64 O2 Sat by Pulse 98 Oximetry (%) Laboratory Tests 11/04/19 11/04/19 11/04/19 07:45 07:45 07:45 WBC 6.8 RBC 4.59 Hgb 15.3 Hct 45.0 MCV 98.1 H MCH 33.2 MCHC 33.9 RDW 12.9 Plt Count 271 MPV 8.3 Sodium 137 Potassium 3.8 Chloride 104 Carbon Dioxide 27 Anion Gap 6 L BUN 7.4 Creatinine 0.8 Est GFR (CKD-EPI)AfAm 120.72 Est GFR (CKD-EPI)NonAf 104.16 Random Glucose 99 Calcium 9.1 Total Bilirubin 0.9 AST 24 ALT 22 Alkaline Phosphatase 61 Total Protein 6.9 Albumin 3.7 Syphilis Serology Non-reactive COVID-19 ([facility]) 11/04/19 08:10 WBC RBC Hgb Hct MCV MCH MCHC RDW Plt Count MPV Sodium Potassium Chloride Carbon Dioxide Anion Gap BUN Creatinine Est GFR (CKD-EPI)AfAm Est GFR (CKD-EPI)NonAf Random Glucose Calcium Total Bilirubin AST ALT Alkaline Phosphatase Total Protein Albumin Syphilis Serology COVID-19 ([facility]) Not detected 11/06/19 10:06 low bp encourage oral fluid Assessment: 11/06/19 10:07 alcohol withdrawal Plan: librium regiment
[2019-11-06] MEDS: hydrOXYzine PAMOATE 50 MG CAPSULE (FP) PO SCH (10:29)
[2019-11-06] MEDS: PRENATAL VITAMINS W/ FOLIC ACID TABLET (FP) PO SCH (10:29)
[2019-11-06] MEDS: NICOTINE 21 MG/24 HOURS TOPICAL PATCH TD SCH (10:30)
--- NOTE | 2019-11-06 11:22 | DS ---
[facility] Detox Discharge Summary Admission Date: 11/03/19 Discharge Date: 11/06/19 - History Present History: Alcohol Dependence Additional Comments: 49 years old male was admitted on 11/03/19 for alcohol withdrawal sx management treated with librium detox regiment mr mayer insists to leave the detox today and [facility] seen by psychiatrist andreina noguera mr mayer is alert oriented x 3 ambulating with steady gaits speech clearly coherently General Appearance: Yes: mild Distress, no Tremorous, not Anxious HEENTM: Yes: Within Normal Limits Respiratory: Yes: Lungs Clear, Normal Breath Sounds, No Respiratory Distress Neck: Yes: Within Normal Limits Breast: Yes: Breast Exam Deferred Cardiology: Yes: Tachycardia Abdominal: Yes: Normal Bowel Sounds Genitourinary: Yes: Within Normal Limits Back: Yes: Normal Inspection Musculoskeletal: Yes: Back pain, Muscle Pain Extremities: Yes: Tremors Neurological: Yes: Within Normal Limits Integumentary: Yes: Warm Lymphatic: Yes: Within Normal Limits Pertinent Past History: time for discharge 47 minutes treatment team met with mr mayer to discuss the benefits of librium regiment completion mr mayer prefers to go [facility] today ""I had enough" - Physical Exam Results Vital Signs: Vital Signs Temperature 97.3 F L 11/06/19 08:31 Pulse Rate 98 H 11/06/19 08:31 Respiratory Rate 20 11/06/19 08:31 Blood Pressure 94/64 11/06/19 08:31 O2 Sat by Pulse Oximetry (%) 98 11/06/19 05:28 Pertinent Admission Physical Exam Findings: alcohol withdrawal Laboratory Tests 11/04/19 11/04/19 11/04/19 07:45 07:45 07:45 WBC 6.8 RBC 4.59 Hgb 15.3 Hct 45.0 MCV 98.1 H MCH 33.2 MCHC 33.9 RDW 12.9 Plt Count 271 MPV 8.3 Sodium 137 Potassium 3.8 Chloride 104 Carbon Dioxide 27 Anion Gap 6 L BUN 7.4 Creatinine 0.8 Est GFR (CKD-EPI)AfAm 120.72 Est GFR (CKD-EPI)NonAf 104.16 Random Glucose 99 Calcium 9.1 Total Bilirubin 0.9 AST 24 ALT 22 Alkaline Phosphatase 61 Total Protein 6.9 Albumin 3.7 Syphilis Serology Non-reactive COVID-19 ([facility]) 09/19/20 08:10 WBC RBC Hgb Hct MCV MCH MCHC RDW Plt Count MPV Sodium Potassium Chloride Carbon Dioxide Anion Gap BUN Creatinine Est GFR (CKD-EPI)AfAm Est GFR (CKD-EPI)NonAf Random Glucose Calcium Total Bilirubin AST ALT Alkaline Phosphatase Total Protein Albumin Syphilis Serology COVID-19 ([facility]) Not detected lab noted - Treatment Hospital Course: Detox Protocol Followed, Detoxed Safely, Responded well, Discharged Condition Good, Rehab Referral Accepted Patient has Accepted a Rehab Referral to: [facility] - Medication Discharge Medications: Ambulatory Orders Albuterol Sulfate Inhaler - [Ventolin HFA Inhaler -] 2 inh PO Q4H PRN 07/13/18 - Diagnosis (1) Alcohol dependence with uncomplicated withdrawal Status: Acute (2) Asthma Status: Chronic Qualifiers: Asthma severity: mild Asthma persistence: intermittent Asthma complication type: with status asthmaticus Qualified Code(s): J45.22 - Mild intermittent asthma with status asthmaticus (3) COPD (chronic obstructive pulmonary disease) Status: Chronic Qualifiers: COPD type: emphysema Emphysema type: unilateral Qualified Code(s): J43.0 - Unilateral pulmonary emphysema [MacLeod's syndrome] (4) Nicotine dependence Status: Acute Qualifiers: Nicotine product type: cigarettes Substance use status: in withdrawal Qualified Code(s): F17.213 - Nicotine dependence, cigarettes, with withdrawal (5) Substance induced mood disorder Status: Suspected - AMA Did Patient Leave Against Medical Advice: No CIWA Score - CIWA Score Nausea/Vomitin-No Nausea/No Vomiting Muscle Tremors: 2 Anxiety: 2 Agitation: 1-Slight > Activity Paroxysmal Sweats: No Perspiration Orientation: 0-Oriented Tacttile Disturbances: 0-None Auditory Disturbances: 0-None Visual Disturbances: 0-None Headache: 0-None Present CIWA-Ar Total Score: 5
[2019-11-07] MEDS ORDERED: chlordiazePOXIDE HCL 10 MG CAPSULE PO ONE (05:00)
[2019-11-07] MEDS ORDERED: chlordiazePOXIDE HCL 10 MG CAPSULE PO SCH (05:00)
[2019-11-08] MEDS ORDERED: chlordiazePOXIDE HCL 10 MG CAPSULE PO ONE (05:00)
== END 2019-11-06 12:42 | disposition home or self-care (01) | DRG 775 ==
LOC: YASAS 21:49 → Y3N 23:20
PROVIDERS: ADMIT Allergy & Immunology; ATTEND Allergy & Immunology
PROC: HZ2ZZZZ Detoxification Services for Substance Abuse Treatment (ICD-10-PCS; principal; 2019-11-03)
DX: F10.230 Alcohol dependence with withdrawal, uncomplicated (principal); F12.20 Cannabis dependence, uncomplicated; F17.210 Nicotine dependence, cigarettes, uncomplicated; F19.24 Other psychoactive substance dependence with psychoactive substance-induced mood disorder; F43.10 Post-traumatic stress disorder, unspecified; J43.0 Unilateral pulmonary emphysema [MacLeod's syndrome]; J45.20 Mild intermittent asthma, uncomplicated; D50.9 Iron deficiency anemia, unspecified; Z62.810 Personal history of physical and sexual abuse in childhood; Z87.828 Personal history of other (healed) physical injury and trauma; Z56.0 Unemployment, unspecified; Z91.018 Allergy to other foods; Z91.013 Allergy to seafood; Z98.890 Other specified postprocedural states
CPT/HCPCS: 36415; 80053; 85027; 86780; 93005; 93010; U0003